=== PATIENT | male | born 1955 ===

== ENCOUNTER 2024-06-05 10:14 | Outpatient (REF) | payer MEDICARE, SELFPAY ==
[2024-06-05 22:01] LABS: BUN 22 mg/dL (7-18); CREATININE 1.3 mg/dL (0.70-1.30); Chloride 99 mmol/L (98-107); Estimated GFR 59.47 (mL/min/1.73m2); Glucose 92 mg/dL (74-106); Potassium 5.3 mmol/L (3.5-5.1); Sodium 133 mmol/L (136-145)
== END 2024-06-05 10:15 | disposition home or self-care (01) ==
LOC: LBN 10:14
PROVIDERS: Visit Provider Physician Assistant Medical
DX: I25.10 Atherosclerotic heart disease of native coronary artery without angina pectoris (principal); I25.2 Old myocardial infarction; I11.0 Hypertensive heart disease with heart failure
CPT/HCPCS: 80048